=== PATIENT | female | born 1970 | race Caucasian/White ===

== ENCOUNTER → 2022-07-06 10:15 | Outpatient (BNVA) | payer BC, SELFPAY | PROVIDERS: PCP Obstetrics & Gynecology; Referring Provider Obstetrics & Gynecology; Visit Provider Specialist | DX: G62.9 Polyneuropathy, unspecified (principal); R29.90 Unspecified symptoms and signs involving the nervous system; M79.7 Fibromyalgia; Z91.89 Other specified personal risk factors, not elsewhere classified | CPT/HCPCS: 36415; 82607; 82746; 83036; 84155; 84165; 85651; 86038; 86334 ==